=== PATIENT | male | born 1970 | race Caucasian/White ===

== ENCOUNTER 2017-11-23 19:09 | Emergency (ER) | payer OTHER, MEDICARE ==
[~2017-11-23] VITALS: Ht 177.8 cm; Wt 95.3 kg
[~2017-11-23 19:09] MED LIST: COREG3.125 MG PO; FLEXERIL PO; HYDROCHLOROTH12.5 M1 PO; HYDROCODONE-AP1 EAC6 PO; LIDODERM 5%1 PATC1 TRANSDERM; LISINOPRIL20 MG PO
[2017-11-23] MEDS ORDERED: TESSALON PERLE100 MG PO (19:23)
[2017-11-23 19:51] LABS: ABSOLUTE BASOPHILS 0.1 thou/uL (0.0-0.2); ABSOLUTE EOSINOPHILS 0.2 thou/uL (0.0-0.7); ABSOLUTE LYMPHOCYTES 2.4 thou/uL (0.8-5.3); BASOPHILS 1.1 %; EOSINOPHILS 2.4 %; HEMATOCRIT 47.2 % (42.0-52.0); HEMOGLOBIN 16.7 gm/dL (14.0-18.0); LYMPHOCYTES 24.7 %; MCH 35.9 pg (26.0-34.0); MCHC 35.4 g/dL (28.0-37.0); MCV 101.4 fL (80.0-100.0); MONOCYTES 9.8 %; MPV 7.8 fl. (7.2-11.1); NUCLEATED RBCS 0 /100WBC; PLATELET COUNT* 242 thou/uL (150-400); RBC 4.66 mil/uL (4.50-6.00); RDW-CV 12.9 % (10.5-14.5); WBC 9.7 thou/uL (4.0-11.0)
[2017-11-23 20:01] LABS: ANION GAP 16 mmol/L (7-16); BUN 18 mg/dL (7-18); CHLORIDE 105 mmol/L (98-107); CO2 20 mmol/L (21-32); CREATININE 0.9 mg/dL (0.6-1.3); GLUCOSE 123 mg/dL (70-99); POTASSIUM 3.5 mmol/L (3.5-5.1); SODIUM 141 mmol/L (136-145)
[2017-11-23 20:11] LABS: ALBUMIN 3.6 g/dL (3.4-5.0); ALKALINE PHOSPHATASE 85 U/L (46-116); NT-PRO BRAIN NAT PEPTIDE 177 pg/mL (<300); TOTAL BILIRUBIN 0.7 mg/dL (<0.1-1.0); TOTAL PROTEIN 7.2 g/dL (6.4-8.2); TROPONIN-I LEVEL <0.06 ng/mL (<0.06)
[2017-11-23 20:40] LABS: SGOT 100.8 U/L (15-37); SGPT 112.8 U/L (30-65)
[2017-11-23] MEDS ORDERED: ZPAK PO (20:50)
[2017-11-23] MEDS ORDERED: VENTOLIN HFA 1818 GM INH (20:50)
[2017-11-23 21:10] VITALS: BP 114/86
--- NOTE | 2017-11-24 12:12 | EKG ---
[place] [address] ELECTROCARDIOGRAM REPORT Name: ALEJANDRA DAVILA Room: [facility]#: [id number] Admission: 11/23/17 Attend Phys: Discharge: 11/23/17 Date of : 66 Report #: [id number] THIS REPORT FOR: //name// ED Test Date: 2017-11-23 Test Time: 19:18:54 Pat Name: ALEJANDRA GIOVANNI Department: Room: Gender: M Battery Hand: : 1970 Requested By: David Badillo Order Number: [id number] MD: Gera Pickett Measurements Intervals [place] Rate: 117 P: 47 [place]: 172 QRS: 37 QRSD: 88 T: 54 QT: 313 QTc: 437 Interpretive Statements Sinus tachycardia Compared to ECG 11/24/2015 17:08:51 No significant changes Electronically Signed On 11-24-2017 12:11:50 [employer]UM[employer]PERATOR HELPER by Gera Pickett [email or web address] <ELECTRONICALLY SIGNED> By: Gera Pickett MD, [facility] 11/24/17 1211 191 17 Gera Pickett MD, FACC /EPI
== END 2017-11-23 21:25 | disposition left against medical advice (07) ==
LOC: M.ERS 19:09
PROVIDERS: Emergency Medicine Emergency Medical Services
DX: J18.9 Pneumonia, unspecified organism (principal); I10 Essential (primary) hypertension; Z88.0 Allergy status to penicillin

== ENCOUNTER → 2017-12-28 | Outpatient (CLI) | payer OTHER, MEDICARE ==
[~2017-12-28] MED LIST changes: +TESSALON PERLE100 MG PO; +VENTOLIN HFA 1818 GM INH; +ZPAK PO
== END ==
LOC: M.RAD 11:36
DX: J18.1 Lobar pneumonia, unspecified organism (principal)

== ENCOUNTER 2019-02-14 16:08 | Emergency (ER) | payer OTHER, MEDICARE ==
[~2019-02-14] VITALS: Ht 175.3 cm; Wt 104.3 kg
[2019-02-14] MEDS ORDERED: PERCOCET 5-3251 EACH PO (16:48)
[2019-02-14] MEDS ORDERED: MEDROLDOSEPACK PO (16:48)
[2019-02-14 17:00] VITALS: BP 130/80
== END 2019-02-14 17:00 | disposition home or self-care (01) ==
LOC: M.ERS 16:08
DX: M54.5 Low back pain (principal); Z88.0 Allergy status to penicillin; I10 Essential (primary) hypertension

== ENCOUNTER 2019-03-12 18:01 | Emergency (ER) | payer OTHER, MEDICARE ==
[~2019-03-12] VITALS: Ht 177.8 cm; Wt 99.8 kg
[~2019-03-12 18:01] MED LIST changes: +MEDROLDOSEPACK PO; +PERCOCET 5-3251 EACH PO
[2019-03-12] MEDS ORDERED: NORCO 7.5-3251 EACH PO (19:04)
[2019-03-12] MEDS ORDERED: CYCLOBENZAPRINE5 MG PO (19:04)
[2019-03-12 19:21] VITALS: BP 129/88
== END 2019-03-12 19:26 | disposition home or self-care (01) ==
LOC: M.ERS 18:01
DX: M54.5 Low back pain (principal); G89.29 Other chronic pain; F17.200 Nicotine dependence, unspecified, uncomplicated; I10 Essential (primary) hypertension; Z88.0 Allergy status to penicillin

== ENCOUNTER 2019-04-03 06:04 | Emergency (ER) | payer OTHER, MEDICARE ==
[~2019-04-03] VITALS: Ht 177.8 cm; Wt 104.3 kg
[~2019-04-03 06:04] MED LIST changes: +CYCLOBENZAPRINE5 MG PO; +NORCO 7.5-3251 EACH PO
[2019-04-03] MEDS ORDERED: DOXYCYCLINE 10100 M1 PO (06:14)
[2019-04-03] MEDS ORDERED: NORCO 5-325 TA1 EAC1 PO (06:37)
[2019-04-03] MEDS ORDERED: IBUPROFEN 800800 M1 PO (06:37)
[2019-04-03 06:50] VITALS: BP 111/81
== END 2019-04-03 06:50 | disposition home or self-care (01) ==
LOC: M.ERS 06:04
DX: S80.11XA Contusion of right lower leg, initial encounter (principal); I10 Essential (primary) hypertension; Z88.0 Allergy status to penicillin; W22.8XXA Striking against or struck by other objects, initial encounter; Y93.89 Activity, other specified; Y92.89 Other specified places as the place of occurrence of the external cause; Y99.8 Other external cause status